=== PATIENT | female | born 1990 | race Caucasian/White ===

== ENCOUNTER → 2017-06-19 | Outpatient (CLI) | payer OTHER ==
--- NOTE | 2017-06-19 13:52 | XR ---
EXAMINATION TYPE: XR foot complete LT DATE OF EXAM: 06/19/2017 COMPARISON: NONE HISTORY: Pain TECHNIQUE: Three views are submitted. FINDINGS: The osseous structures are intact and the joint spaces are preserved. There is no acute fracture or dislocation. Large calcaneal spur noted. Deformity involving the fourth metatarsal likely is related to previous trauma. IMPRESSION: 1. No acute fracture or dislocation. If symptoms persist, follow-up exam in 7 to 10 days could be ob tained.
== END | disposition home or self-care (01) ==
LOC: RADXRYALE 13:29
PROVIDERS: ATTEND Internal Medicine
DX: M79.672 Pain in left foot (principal)